=== PATIENT | female | born 1985 | race Caucasian/White ===

== ENCOUNTER 2022-12-13 20:10 | Emergency (ER) | payer OTHER ==
[2022-12-13] MEDS ORDERED: Ketorolac Tromethamine 30 MG/ML VIAL ONE (21:24)
[2022-12-13] MEDS ORDERED: FENTANYL 50 MCG/ML 1 ML VIAL ONE ×2 (21:24)
== END 2022-12-13 22:27 ==
LOC: ERS 20:10
DX: S93.401A Sprain of unspecified ligament of right ankle, initial encounter (principal); Y93.68 Activity, volleyball (beach) (court)
CPT/HCPCS: 96374; 96375; J1885; J3010